=== PATIENT | female | born 1970 | race Caucasian/White ===

== ENCOUNTER 2022-09-02 10:59 | Outpatient (CLI) | payer BC, SELFPAY ==
[2022-09-02 17:56] LABS: Vitamin B12* 789 pg/mL (243-894)
== END 2022-09-02 11:00 | disposition home or self-care (01) ==
LOC: NFLDREF 16:08
PROVIDERS: PCP Family Medicine; Visit Provider Family Medicine
DX: E53.8 Deficiency of other specified B group vitamins (principal)
CPT/HCPCS: 82607

== ENCOUNTER 2022-11-18 16:06 | Outpatient (CLI) | payer BC, SELFPAY ==
[2022-11-18 19:04] LABS: Vitamin B12* 630 pg/mL (243-894)
== END 2022-11-18 16:07 | disposition home or self-care (01) ==
PROVIDERS: PCP Family Medicine; Visit Provider Family Medicine
DX: E53.8 Deficiency of other specified B group vitamins (principal)
CPT/HCPCS: 82607

== ENCOUNTER 2023-02-16 14:56 | Outpatient (CLI) | payer BC, SELFPAY ==
--- NOTE | 2023-02-16 15:00 | CRLHL7_ITS ---
For Patients: As a result of the Cures Act, medical imaging exams and procedure reports are released immediately into your electronic medical record. You may view this report before your referring provider. If you have questions, please contact your health care provider. BILATERAL SCREENING MAMMOGRAM WITH COMPUTER-AIDED DETECTION AND TOMOSYNTHESIS TECHNIQUE: CC and MLO views were obtained. These mammographic images have been obtained using full-field digital technique. These mammographic images were interpreted with the benefit of computer-aided detection. Breast Tomosynthesis was used in this interpretation. COMPARISON FILM: 12/29/21, 08/08/18, 02/21/15. FINDINGS: The breasts are heterogeneously dense, which may obscure small masses IMPRESSION: There is no radiographic evidence for malignancy. ASSESSMENT: BI-RADS Category 2: Benign RECOMMENDATION: Routine screening mammogram in 1 year. A lay language report of this examination will be provided to the patient. DASIA RAMOS M.D. Diagnostic/Nuclear Medicine Radiologist [email or web address] AUDREY:glen Transcribed: 1:11 p.mPro carroll/Dictated by: Dasia Ramos MD @ 02/17/2023 8:24:00 AM (Electronically Signed)
== END 2023-02-16 14:57 | disposition home or self-care (01) ==
LOC: MAMMO 14:57
PROVIDERS: PCP Family Medicine; Visit Provider Family Medicine
DX: Z12.31 Encounter for screening mammogram for malignant neoplasm of breast (principal); R92.2 Inconclusive mammogram
CPT/HCPCS: 77063; 77067

== ENCOUNTER 2023-12-26 11:39 | Outpatient (CLI) | payer BC, SELFPAY | END 2023-12-26 11:40 | disposition home or self-care (01) | LOC: NFLDREF 11:39 | PROVIDERS: PCP Family Medicine; Visit Provider Obstetrics & Gynecology | DX: E53.8 Deficiency of other specified B group vitamins (principal) | CPT/HCPCS: 82607 ==

== ENCOUNTER 2025-01-17 16:12 | Outpatient (CLI) | payer OTHER, SELFPAY | END 2025-01-17 16:13 | disposition home or self-care (01) | PROVIDERS: PCP Family Medicine; Visit Provider Obstetrics & Gynecology | DX: F52.0 Hypoactive sexual desire disorder (principal); E53.8 Deficiency of other specified B group vitamins; N39.3 Stress incontinence (female) (male); N95.2 Postmenopausal atrophic vaginitis | CPT/HCPCS: 84270; 84402; 84403; 84443 ==

== ENCOUNTER 2025-03-19 16:16 | Outpatient (CLI) | payer OTHER, SELFPAY | END 2025-03-19 16:17 | disposition home or self-care (01) | LOC: NFLDREF 03-26 07:08 | PROVIDERS: PCP Family Medicine; Referring Provider Family Medicine; Visit Provider Obstetrics & Gynecology | DX: F52.0 Hypoactive sexual desire disorder (principal); Z79.890 Hormone replacement therapy | CPT/HCPCS: 84403 ==

== ENCOUNTER 2025-05-07 14:45 | Outpatient (RCR) | payer OTHER, SELFPAY | END 2025-06-21 15:25 | disposition home or self-care (01) | PROVIDERS: PCP Family Medicine; Visit Provider Obstetrics & Gynecology | DX: N39.3 Stress incontinence (female) (male) (principal); M25.552 Pain in left hip; Z51.89 Encounter for other specified aftercare | CPT/HCPCS: 97110; 97140; 97161; 97530 ==

== ENCOUNTER 2025-07-03 09:36 | Outpatient (CLI) | payer OTHER, SELFPAY | END 2025-07-03 09:37 | disposition home or self-care (01) | LOC: NFLDREF 07-11 02:00 | PROVIDERS: PCP Family Medicine; Referring Provider Family Medicine; Visit Provider Obstetrics & Gynecology | DX: Z79.899 Other long term (current) drug therapy (principal) | CPT/HCPCS: 84403 ==

== ENCOUNTER 2025-09-04 13:18 | Outpatient (CLI) | payer OTHER, SELFPAY | END 2025-09-04 13:19 | disposition home or self-care (01) | PROVIDERS: PCP Family Medicine; Visit Provider Family Medicine | DX: E53.8 Deficiency of other specified B group vitamins (principal); R53.83 Other fatigue; Z79.899 Other long term (current) drug therapy | CPT/HCPCS: 80053; 80061; 82607 ==